=== PATIENT | female | born 1965 | race Two or more races ===

== ENCOUNTER 2019-08-27 18:08 | Emergency (ER) | payer OTHER ==
[2019-08-27 18:44] LABS: HEMATOCRIT 22.4 % (36.0-47.0); MEAN CORPUSCULAR HEMOGLOBIN 22.8 pg (27.0-33.4); MEAN CORPUSCULAR HGB CONC 30.8 g/dL (32.0-36.0); MEAN CORPUSCULAR VOLUME 74 fl (80-97); PLATELET COUNT 527 10^3/uL (150-450); RED BLOOD COUNT 3.03 10^6/uL (3.72-5.28); RED CELL DISTRIBUTION WIDTH 21.1 % (11.5-14.0); WHITE BLOOD COUNT 8.1 10^3/uL (4.0-10.5)
[2019-08-27 18:46] LABS: APPEARANCE,URINE CLEAR; BILIRUBIN,URINE NEGATIVE (NEGATIVE); COLOR,URINE STRAW; GLUCOSE, URINE NEGATIVE (NEGATIVE); KETONES,URINE NEGATIVE (NEGATIVE); LEUKOCYTE ESTERASE,URINE SMALL (NEGATIVE); NITRITE,URINE NEGATIVE (NEGATIVE); PROTEIN,URINE NEGATIVE (NEGATIVE); URINE SPECIFIC GRAVITY 1.005; UROBILINOGEN,URINE NEGATIVE mg/dL (<2.0)
[2019-08-27 18:51] LABS: HEMOGLOBIN 6.9 g/dL (12.0-15.5)
[2019-08-27 18:56] LABS: ALBUMIN 4.4 g/dL (3.5-5.0); ALKALINE PHOSPHATASE 275 U/L (38-126); ANION GAP 9 (5-19); ASPARTATE AMINO TRANSFERASE 28 U/L (14-36); BILIRUBIN,TOTAL 0.2 mg/dL (0.2-1.3); BLOOD UREA NITROGEN 8 mg/dL (7-20); CALCIUM 8.3 mg/dL (8.4-10.2); CARBON DIOXIDE 20 mmol/L (22-30); CHLORIDE 110 mmol/L (98-107); GLUCOSE 129 mg/dL (75-110); POTASSIUM 4.9 mmol/L (3.6-5.0); SALICYLATE 2.5 mg/dL (2.0-20.0)
[2019-08-27 18:57] LABS: ACETAMINOPHEN < 10 ug/mL (10-30); ALCOHOL < 10 mg/dL (NONE DETECTED)
[2019-08-27 19:05] LABS: URINE AMPHETAMINES SCREEN NEGATIVE; URINE BARBITURATES SCREEN NEGATIVE; URINE BENZODIAZEPINES SCREEN NEGATIVE; URINE COCAINE SCREEN NEGATIVE; URINE MARIJUANA (THC) SCREEN NEGATIVE; URINE METHADONE SCREEN NEGATIVE; URINE PHENCYCLIDINE SCREEN NEGATIVE
[2019-08-27 19:07] LABS: ABSOLUTE LYMPHOCYTES# (MANUAL) 2.8 10^3/uL (0.5-4.7); ABSOLUTE MONOCYTES # (MANUAL) 0.6 10^3/uL (0.1-1.4); BASOPHILS % (MANUAL) 1 % (0-2); EOSINOPHILS % (MANUAL) 0 % (0-6); LYMPHOCYTES % (MANUAL) 34 % (13-45); MONOCYTES % (MANUAL) 7 % (3-13); SEGMENTED NEUTROPHILS % (MAN) 57 % (42-78); TOTAL CELLS COUNTED 100
[2019-08-27 19:10] LABS: ANISOCYTOSIS 3+; BURR CELLS SLIGHT; HYPOCHROMASIA 2+; OVALOCYTES 1+; PLATELET COMMENT INCREASED; POIKILOCYTOSIS 1+; POLYCHROMASIA SLIGHT; SCHISTOCYTES SLIGHT; TEAR DROP CELLS SLIGHT
[2019-08-27] MEDS ORDERED: NORMAL SALINE 250 ML IV PRN ×2 (19:32)
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
[2019-08-27] MEDS ORDERED: ACETAMINOPHEN 325 MG TABLET PO ONE (20:32)
[2019-08-27] MEDS ORDERED: OLANZAPINE 5 MG TAB.RAPDIS PO ONE (21:50)
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
[2019-08-28 05:15] LABS: HEMOGLOBIN 8.8 g/dL (12.0-15.5); MEAN CORPUSCULAR HEMOGLOBIN 25.5 pg (27.0-33.4); MEAN CORPUSCULAR HGB CONC 32.8 g/dL (32.0-36.0); PLATELET COUNT 376 10^3/uL (150-450); RED BLOOD COUNT 3.47 10^6/uL (3.72-5.28); WHITE BLOOD COUNT 5.7 10^3/uL (4.0-10.5)
[2019-08-28 05:30] LABS: MEAN CORPUSCULAR VOLUME 78 fl (80-97)
--- NOTE | 2019-08-28 09:23 | EKG REPORT ---
SEVERITY:- ABNORMAL ECG - SINUS RHYTHM PROBABLE POSTERIOR INFARCT : Confirmed by: Yaneth Isidro MD 28-Aug-2019 09:22:31
--- NOTE | 2019-08-28 13:35 | PSYCHOLOGICAL NOTE ---
Psych Note - Psych Note Date seen by psych provider: 08/28/19 Time seen by psych provider: 12:20 Psych Note: Reason for Consult: IVC Medication recommendations per [facility]'s contracted psychiatrist Dr. Dallas PULIDO are as follows: Zyprexa 2.5mg every evening Impression/Plan: Patient is recommended to rescind IVC petition and is cleared from acute psychiatric services. Paperwork is signed and placed in patient's chart. Dr. Neves was consulted on the care and management of this patient; attending physician is in agreement with recommendations and disposition.
[2019-08-28 14:20] VITALS: BP 107/86
--- NOTE | 2019-08-28 14:20 | ER Document Report ---
Doctor's Note Notes: 08/28/19 14:19 Patient seen and examined. She has no acute complaints or concerns. She is feeling much improved after blood. She has no thoughts of hurting her self, no thoughts of hurting on else. No hallucinations. Physical exam reveals a pleasant 53-year-old female who appears her stated age in no acute distress. Heart regular rhythm, lungs encrustation bilaterally. Abdomen soft, nontender, regular bowel sounds. Patient is awake alert, cooperative with examiner. In short, patient has anemia, is no longer considered a danger herself to or others. We will write her some Zyprexa for her insomnia, which seemed to help when she was here, she is to follow-up closely with primary care and return to the ED with worsening.
== END 2019-08-28 14:29 | disposition home or self-care (01) ==
LOC: ER 18:08
DX: Z04.6 Encounter for general psychiatric examination, requested by authority (principal); D50.9 Iron deficiency anemia, unspecified; R46.89 Other symptoms and signs involving appearance and behavior; R45.850 Homicidal ideations; G47.00 Insomnia, unspecified; R53.1 Weakness; Z79.899 Other long term (current) drug therapy
CPT/HCPCS: 93005; 99285; 96360; 96361; 86900; 86901; 36415; 36430; 86850; 80307 ×4; 84443; 84703; 85025; 85027; 80053; 81001; 86920; 93010; P9016; J3490; J7050 ×2